=== PATIENT | male | born 1960 | race Caucasian/White ===

== ENCOUNTER 2022-04-17 10:55 | Day surgery (SDC) | payer SELFPAY ==
[2022-04-16 09:19] LABS: BASOPHILS # (AUTO) 0.1 X10'3 (0-0.2); BASOPHILS % (AUTO) 0.9 % (0-1); EOSINOPHILS # (AUTO) 0.1 X10'3 (0-0.9); EOSINOPHILS % (AUTO) 1.7 % (0-6); HEMATOCRIT 41.8 % (42.0-52.0); HEMOGLOBIN 13.9 g/dl (14.0-17.9); LYMPHOCYTES # (AUTO) 1.9 X10'3 (1.1-4.8); LYMPHOCYTES % (AUTO) 30.4 % (21-51); MEAN CORPUSCULAR HEMOGLOBIN 29.7 PG (27.0-31.0); MEAN CORPUSCULAR HGB CONC 33.1 g/dL (33.0-36.5); MEAN CORPUSCULAR VOLUME 89.7 FL (78-98); MONOCYTES # (AUTO) 0.6 X10'3 (0-0.9); MONOCYTES % (AUTO) 9.1 % (2-12); NEUTROPHILS # (AUTO) 3.6 X10'3 (1.8-7.7); NEUTROPHILS % (AUTO) 57.9 % (42-75); PLATELET COUNT 275 X10'3 (140-440); RED BLOOD COUNT 4.67 X10'6 (4.70-6.10); RED CELL DISTRIBUTION WIDTH 13.4 % (11.5-14.5); WHITE BLOOD COUNT 6.3 X10'3 (4.5-11.0)
[2022-04-16 09:23] LABS: APTT 27 SECONDS (22-32)
[2022-04-16 09:25] LABS: ALBUMIN 3.9 G/DL (3.4-5.0); ANION GAP 3 (8-16); BLOOD UREA NITROGEN 18 MG/DL (7-18); BUN/CREATININE RATIO 17.1 (5.4-32.0); CALCIUM 9.4 MG/DL (8.5-10.1); CHLORIDE 106 MMOL/L (99-107); CHOL/HDL RATIO 4.5 (0.00-4.99); CHOLESTEROL 250 MG/DL (0-200); CREATININE 1.05 MG/DL (0.60-1.10); GLUCOSE 87 MG/DL (70-104); HDL CHOLESTEROL 55 MG/DL (35-60); LDL CHOLESTEROL 163 MG/DL (50-100); SODIUM 140 MMOL/L (135-145); TOTAL CARBON DIOXIDE 30.7 MMOL/L (24-32); TRIGLYCERIDES 104 MG/DL (20-135); eGFR 72 ML/MIN
[~2022-04-17] VITALS: Ht 177.8 cm; Wt 91.9 kg
[2022-04-17] VITALS (8 sets, daily range): BP systolic 119–153; BP diastolic 84–100
[2022-04-17] MEDS ORDERED: LISI20TA28 PO (11:11)
[2022-04-17] MEDS ORDERED: iohexol 350MG/ML 100ml bottle IV ONE ×2 (11:35→12:22)
[2022-04-17] MEDS ORDERED: LIDOcaine 1% (10mg/ml) 2ml vial ONE (11:35)
[2022-04-17] MEDS ORDERED: nitroGLYCERIN-Tridil 50MG/D5W 250 ML IV ONE (11:35)
[2022-04-17] MEDS ORDERED: verapamil 2.5 mg/ml inj IV ONE (11:35)
[2022-04-17] MEDS ORDERED: heparin 1,000unit/ml 10ml vial 10 ML ONE (11:35)
[2022-04-17] MEDS ORDERED: fentaNYL/PF 50MCG/1 ML 2ML syringe ONE (11:35)
[2022-04-17] MEDS ORDERED: midazolam 1 mg/ML 2ml injection ONE ×3 (11:35→12:31)
[2022-04-17] MEDS ORDERED: normal saline 1,000 ML IV SCH (11:40)
[2022-04-17] MEDS ORDERED: LORazepam 0.5 MG tablet PO PRN (11:40)
[2022-04-17] MEDS ORDERED: diphenhydrAMINE 25mg capsule PO PRN (11:40)
[2022-04-17] MEDS ORDERED: clopidogrel 300mg tablet ONE (12:36)
[2022-04-17] MEDS ORDERED: proCHLORperazine 10 MG/2 ml inj IV PRN (13:55)
[2022-04-17] MEDS ORDERED: ondansetron/PF 4mg/2ml inj IV PRN (13:55)
[2022-04-17] MEDS ORDERED: HYDROcodone/acetaminophen 5mg/325mg tablet PO PRN (13:55)
[2022-04-17] MEDS ORDERED: normal saline 1000ml 1,000 ML IV SCH (13:55)
[2022-04-17] MEDS ORDERED: OXAZEpam 15mg capsule PO PRN (13:55)
[2022-04-17] MEDS ORDERED: HYDROcodone/acetaminophen 10/325mg tab PO PRN (13:55)
== END 2022-04-17 16:10 | disposition home or self-care (01) ==
LOC: SSTAY O 10:55
PROVIDERS: ATTEND Student in an Organized Health Care Education/Training Program
DX: R94.39 Abnormal result of other cardiovascular function study (principal); I25.10 Atherosclerotic heart disease of native coronary artery without angina pectoris; I10 Essential (primary) hypertension; Z79.899 Other long term (current) drug therapy; Z79.01 Long term (current) use of anticoagulants
CPT/HCPCS: 36415; 80048; 80061; 85025; 85610; 85730; 93005; 93458; 99152; 99153; C1725; C1751; C1769; C1874; C1894; C9600; J1644; J2250; J3010; J3490; J7030; Q9967; 92928; A6258; A6402

== ENCOUNTER 2024-10-15 12:25 | Emergency (ER) | payer SELFPAY ==
[~2024-10-15] VITALS: Ht 175.3 cm; Wt 94.1 kg
[~2024-10-15 12:25] MED LIST: LISI20TA28 PO
[2024-10-15 12:34] VITALS: TEMP 98.3
--- NOTE | 2024-10-15 13:08 | ELECTROCARDIOGRAPH REPORT ---
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
--- NOTE | 2024-10-15 13:18 | Physician Documentation ---
History of Present Illness ~ Chief Complaint: Chest Pain Stated Complaint: CP Time Seen by MD: 14:16 HPI This is a 63-year-old male history of stents who presents with sharp nonradiating chest pain onset this morning and worse with deep breathing. Reports he had a stent placed last year prior to having the stent placed he was seen by [place] [facility] and underwent a stress test. Patient reports that the feeling that he experienced this morning is the same pain that he experienced during the stress test 1 year ago. Patient denies any exertional activities or any trauma at this time. Reports that work is little bit more stressful than it has been but no other changes. Medication Reconciliation Allergies: Coded Allergies: No Known Allergies (Unverified , 10/15/24) Scheduled Lisinopril (Lisinopril), 5 MG PO DAILY, (Reported) Review of Systems ROS As stated above in the HPI, otherwise all systems are reviewed and negative. Physical Exam Vital Signs: Temperature: 98.3, Source: Temporal, Heart Rate: 74, Respiratory Rate: 16, BP: 162/99, Pulse Oximetry: 98, Weight: 94.100 Oxygen Flow Rate: 0 Physical Exam VITALS: Reviewed and as above. GENERAL: Alert, nontoxic appearing, no apparent distress. HEENT: RESPIRATORY: No increased work of breathing, no respiratory distress, speaking in full clear sentences CHEST: CV: BACK: GI: MUSCULOSKELETAL: SKIN: NEURO: PSYCH: Progress Results/Orders Results/Orders Vital Signs 10/15/24 10/15/24 12:34 14:45 Temp 98.3 Pulse 74 60 Resp 16 11 B/P (MAP) 162/99 130/86 (101) Pulse Ox 98 96 O2 Flow Rate 0 Laboratory Tests Test 10/15/24 12:30 10/15/24 15:11 White Blood Count 10.0 Red Blood Count 4.58 L Hemoglobin 13.9 L Hematocrit 40.8 L Mean Corpuscular Volume 89.2 Mean Corpuscular Hemoglobin 30.3 Mean Corpuscular Hemoglobin Concent 34.0 Red Cell Distribution Width 13.7 Platelet Count 336 Mean Platelet Volume 8.3 Neutrophils (%) (Auto) 80.0 H Lymphocytes (%) (Auto) 14.7 L Monocytes (%) (Auto) 4.5 Eosinophils (%) (Auto) 0.3 Basophils (%) (Auto) 0.5 Neutrophils # (Auto) 8.0 H Lymphocytes # (Auto) 1.5 Monocytes # (Auto) 0.4 Eosinophils # (Auto) 0.0 Basophils # (Auto) 0.0 CBC Comment Sodium Level 139 Potassium Level 3.9 Chloride Level 105 Carbon Dioxide Level 26.5 Anion Gap 8 Blood Urea Nitrogen 11 Creatinine 1.25 H Estimated GFR/1.73 m2 59 BUN/Creatinine Ratio 8.8 L Glucose Level 116 H Calcium Level 9.7 Troponin I High Sensitivity 5 5 Pro-B-Type Natriuretic Peptide 84 Albumin 4.1 Chemistry Comments Troponin I High Sens Percent Delta 0 Troponin I Hi Sens Absolute Change 0 Medical Decision Making Findings MSE performed in triage and patient returned to ED lobby by nursing staff to await available ED room. ACS protocol initiated. Exam without evidence of volume overload so doubt heart failure. EKG without signs of active ischemia. Given the timing of pain to ER presentation, single troponin negative at 5, delta troponin_ was _ so doubt NSTEMI. Presentation not consistent with acute PE (Wells low risk, PERC negative_),pneumothorax (not visualized on chest xr), thoracic aortic dissection, pericarditis, tamponade, pneumonia (no infectious symptoms, clear chest xr), myocarditis (no recent illness, neg trop). HEART score of 3, so plan discharge patient home with PMD follow up. 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 Patient will return to the emergency department with any worsening of his current symptoms or any additional concerning symptoms that we discussed here today i.e. increased chest pain shortness of breath lightheadedness syncope or near-syncope or any other concerning symptoms. Differential Dx:Considerations: Include: angina, aortic dissection, chest wall pain, cholelithiasis, CHF, costochondritis, esophageal reflux/spasm, gastritis, herpes zoster, myocardial infarction, pericarditis, pleuritis, pancreatitis, pneumonia, pneumothorax, pulmonary embolus, other Departure Disposition: 01 HOME / SELF CARE / HOMELESS Impression: Primary Impression: Chest pain Additional Impressions: Chest wall pain Non-cardiac chest pain Condition: Stable Discharge Instructions: Nonspecific Chest Pain, Adult Additional Instructions: Exam without evidence of volume overload so doubt heart failure. EKG without signs of active ischemia. Given the timing of pain to ER presentation, single troponin negative at 5, 2nd troponin was 5, so doubt NSTEMI. Presentation not consistent with acute PE (Wells low risk, PERC negative_),pneumothorax (not visualized on chest xr), thoracic aortic dissection, pericarditis, tamponade, pneumonia (no infectious symptoms, clear chest xr), myocarditis (no recent illness, neg trop). HEART score of 3, so plan discharge patient home with PMD follow up. 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 Patient will return to the emergency department with any worsening of his current symptoms or any additional concerning symptoms that we discussed here today i.e. increased chest pain shortness of breath lightheadedness syncope or near-syncope or any other concerning symptoms. Referrals: NO PRIMARY CARE PROVIDER (PCP) Education Educated: Patient Educated regarding: diagnosis, treatment, need for follow up Signature Scribe Signature: A Attestation: Scribed for Nitesh Anand by ANALISA Westfall . 10/15/24 16:29 LYNN ROBERTS Oct 15, 2024 13:18 NITESH ANAND Oct 15, 2024 14:34
[2024-10-15 13:20] LABS: MEAN PLATELET VOLUME 8.3 FL (7.4-10.4); RED CELL DISTRIBUTION WIDTH 13.7 % (11.5-14.5)
[2024-10-15 13:36] LABS: CREATININE 1.25 MG/DL (0.60-1.10); PRO BRAIN NATRIURETIC PEPTIDE 84 PG/ML (0-125); TOTAL CARBON DIOXIDE 26.5 MMOL/L (24-32); eCRCL 62 ML/MIN; eGFR 59 ML/MIN
--- NOTE | 2024-10-15 14:29 | RADIOLOGY REPORT ---
CHEST RADIOGRAPH Indication: CP Technique: Single frontal view of the chest was obtained COMPARISON: None FINDINGS: Lines and Tubes: None Lungs: Clear Pleura: No effusion. No pneumothorax. Cardiomediastinal contours: Unremarkable Bones: Unremarkable IMPRESSION: No acute disease.
[2024-10-15 16:43] VITALS: BP 141/88; PULSE 62; RESP 14; O2SAT 96
== END 2024-10-15 16:49 | disposition home or self-care (01) ==
LOC: ER 12:25
DX: R07.89 Other chest pain (principal); R06.02 Shortness of breath
CPT/HCPCS: 36415; 71045; 80048; 83880; 84484; 85025; 93005; 99285